=== PATIENT | female | born 1955 | race Caucasian/White ===

== ENCOUNTER 2017-01-16 05:11 | Day surgery (SDC) | payer BC ==
[2017-01-09 10:26] VITALS: BMI 27.4
[2017-01-16] MEDS ORDERED: MIDAZOLAM HCL 2 MG/2 ML SINGLE DOSE VIAL ONE ×2 (09:21)
[2017-01-16] MEDS ORDERED: PROPOFOL 20 ML ONE ×2 (09:21)
[2017-01-16] MEDS ORDERED: ACETAMINOPHEN 325 MG TABLET (FP) PO PRN ×2 (09:31→10:10)
[2017-01-16] MEDS ORDERED: LEVOFLOXACIN 500 MG PREMIX BAG IVPB ONE (09:45)
[2017-01-16] MEDS ORDERED: oxyCODONE HCL 5 MG TABLET PO PRN (10:10)
[2017-01-16] MEDS ORDERED: NITROFURANTOIN MACROCRYSTAL 50 MG CAPSULE (FP) PO ONE (10:15)
[2017-01-16] MEDS ORDERED: ONDANSETRON 4 MG/2 ML VIAL IVPUSH PRN (10:39)
[2017-01-16] MEDS ORDERED: LACTATED RINGERS SOLUTION 1,000 ML IV SCH (10:45)
--- NOTE | 2017-01-16 10:50 | HP ---
DATE OF ADMISSION: HISTORY: The patient is a 61-year-old female with a history of persistent microscopic hematuria. A cystoscopy done several months ago was within normal limits. The patient also complains of left lower quadrant pain with no radiation, continuous and deep on palpation. She denies any voiding symptoms including incontinence, dysuria, or frequency. PAST MEDICAL HISTORY: She has had her right ovary removed, and she does have a history of hyperlipidemia. SOCIAL HISTORY: She has more than 20 years of 1-day/pack smoking. She works as a junior high school principal. She denies any chemical exposures. ALLERGIES: She is allergic to NSAIDS, PENICILLIN, ERYTHROMYCIN, and CLINDAMYCIN. MEDICATIONS: Presently, she takes a statin and Paxil for some depression. Repeat regimens of antibiotics were unsuccessful. DIAGNOSTIC DATA: The patient continues to have 4+ blood in her urine. She underwent an abdominal and pelvic CAT scan, which was within normal limits. Her PT 11 and INR 0.97. Her random glucose was 110, BUN 19, creatinine 1. Liver enzymes were all within normal limits. Her white cell count is 8000. Hemoglobin 14.9, hematocrit 45.2. Her direct platelets were 204,000, indices were normal. Urine microscopy also revealed RBCs greater than 3 per high-power field. HCG is negative. The patient also had a chest x-ray, which was read as negative. Her findings on the CT revealed sigmoid diverticulosis with a focal area of wall thickening. There was some pericolonic fat stranding. There was also some thickening of the mesocolon. No free intraperitoneal air was seen. The kidneys, ureters, and bladder were within normal limits. No stones were found. No evidence of obstructive uropathy was seen. The bladder was slightly thickened. There was a 3-cm x 1-cm exophytic, hyperdense lesion in the left upper pole of the kidney, which is unchanged in size from a CAT scan from 2008. This most likely has proteinaceous content. A renal ultrasound revealed a cystic lesion in that same area. PHYSICAL EXAMINATION: Chest: Clear. Abdomen: Soft. No CVA tenderness is elicited. Pelvic: Reveals a grade 1 cystorectocele with atrophic vaginitis. Urethra is within normal limits. Extremities: Show full range of motion with no clubbing, cyanosis, or edema. IMPRESSION: At present, 1. Persistent, microscopic hematuria. 2. Left renal cyst. 3. Normal cystoscopy. A urine cytology revealed suspicious cells but not conclusive for transitional cell carcinoma. PLAN: For cystoscopy, bilateral ureteroscopies, bilateral pelvic washings. Roxy [id number]
[2017-01-16 10:58] VITALS: TEMP 98
--- NOTE | 2017-01-16 12:07 | OP ---
DATE OF OPERATION: 01/16/2017 PREOPERATIVE DIAGNOSIS: Persistent, microscopic hematuria, bilateral flank pain. OPERATIVE PROCEDURE: Cystourethroscopy, bilateral retrograde pyelogram, bilateral ureteroscopies, bilateral collection of exfoliated cytology, and placement of bilateral double-J stents. ANESTHESIA: General. DESCRIPTION OF PROCEDURE: Under above-stated anesthesia, the patient was prepped and draped in the usual sterile manner. She was placed in the dorsal lithotomy position. Inspection of the internal introitus revealed a grade 1 cystourethrocele. There was some evidence of atrophic vaginitis and a tight meatus. Therefore, the meatus was calibrated to 22-Libyan and dilated to 30-Libyan with straight Shohola sounds without difficulty or bleeding. A cystoscope was introduced and urine was collected for culture and sensitivity. Inspection of the bladder revealed a grade 1-2 trabeculation. No overt lesions or calculi were seen. Ureteral orifices were located in their normal position with efflux of clear urine bilaterally. Dome and lateral jimenez were also clear of lesions. A Flexi-Tip catheter was placed into the right ureteral orifice, and approximately 7 mL of contrast was injected. X-rays revealed no filling defect in the right renal pelvis. The ureter was within normal limits. Drainage films revealed good drainage. The same thing was done on the contralateral side then this was also within normal limits. Therefore, a Glidewire was passed up the right renal unit. The cystoscope was removed. Ureteroscope was performed in the usual fashion. The entire ureter appeared to be normal with no lesions seen. The right renal pelvis also appeared to be normal. There were areas that were hyperemic but no overt lesions or calculi were seen. Therefore, 10 mL of normal saline was injected and then aspirated for exfoliative cytology. The ureteroscope was then withdrawn, and exactly the same thing was done on the left side. Afterwards, bilateral double-J 22-cm 6-Libyan JJ stents were placed in the right and left renal units. X-rays confirmed good position of the stents. The bladder was emptied. The scope was removed. The patient tolerated the procedure well. She returned to the recovery room in good condition. Roxy [id number]
[2017-01-16] MEDS ORDERED: ONDANSETRON 4 MG/2 ML VIAL ONE (12:49)
[2017-01-16 16:23] VITALS: BP 141/81; PULSE 66
--- NOTE | 2017-01-19 13:20 | PATH ---
Cytology Non-Gynecological Report Patient Name: ROSHAN CRUZ [facility]. Rec. #: [id number] /Age/Gender: 1955 (Age: 61) / F Account: [id number] Location: [facility] Taken: 01/16/2017 Received: 01/16/2017 Reported: 01/19/2017 Physicians: Dinah Archuleta M.D. Specimen(s) Received RIGHT RENAL PELVIC WASHING Clinical History None given Final Diagnosis RIGHT RENAL PELVIS, WASHING: SATISFACTORY FOR EVALUATION. ATYPICAL AND DEGENERATING UROTHELIAL CELLS PRESENT, FAVOR REACTIVE. NO HIGH GRADE UROTHELIAL CARCINOMA IDENTIFIED. RED BLOOD CELLS ARE PRESENT. Comment: The cytologic preparations show numerous clusters of urothelial cells, with papillary formations noted. Some of the urothelial cells show nuclear enlargement and small nucleoli. The cytologic findings may be the result of inflammation or instrumentation; but the possibility of a low grade urothelial neoplasm cannot be completely excluded. Recommend correlation with clinical findings and followup as clinically indicated. Electronically Signed Alberto Islas M.D. Gross Description Approximately 2 cc of bloody fluid received fresh. Two cytofunnels prepared.
--- NOTE | 2017-01-19 13:21 | PATH ---
Cytology Non-Gynecological Report Patient Name: ROSHAN CRUZ [facility]. Rec. #: [id number] /Age/Gender: 1955 (Age: 61) / F Account: [id number] Location: [facility] Taken: 01/16/2017 Received: 01/16/2017 Reported: 01/19/2017 Physicians: Dinah Archuleta M.D. Specimen(s) Received LEFT RENAL PELVIC WASHINGS Clinical History None given Final Diagnosis LEFT RENAL PELVIS, WASHING: SATISFACTORY FOR EVALUATION. BENIGN (NO MALIGNANT CELLS IDENTIFIED). BENIGN AND REACTIVE UROTHELIAL CELLS AND RED BLOOD CELLS PRESENT. Electronically Signed Alberto Islas M.D. Gross Description Approximately 10 cc of bloody fluid received fresh. Two cytofunnels prepared.
--- NOTE | 2017-01-19 13:21 | PATH ---
Cytology Non-Gynecological Report Patient Name: ROSHAN CRUZ [facility]. Rec. #: [id number] /Age/Gender: 1955 (Age: 61) / F Account: [id number] Location: [facility] Taken: 01/16/2017 Received: 01/16/2017 Reported: 01/19/2017 Physicians: Dinah Archuleta M.D. Specimen(s) Received URINE Clinical History None given Final Diagnosis URINE FOR CYTOLOGY: SATISFACTORY FOR EVALUATION. ATYPICAL CLUSTERS OF UROTHELIAL CELLS PRESENT. NO HIGH GRADE UROTHELIAL CARCINOMA IDENTIFIED. RED BLOOD CELLS AND DEBRIS PRESENT. Comment: Clusters of urothelial cells are atypical finding in a voided urine, and may be the result of infection, inflammation, or instrumentation. However, the possibility of a low-grade urothelial neoplasm cannot be excluded. Recommend correlation with clinical findings and followup as clinically indicated. Electronically Signed Alberto Islas M.D. Gross Description Approximately 15 cc of yellow fluid received fresh. Two cytofunnels and one cellblock prepared.
== END 2017-01-16 15:30 | disposition home or self-care (01) ==
LOC: JASU-SURG 05:11
PROVIDERS: ATTEND Urology
PROC: BT14YZZ Fluoroscopy of Kidneys, Ureters and Bladder using Other Contrast (ICD-10-PCS; 2017-01-16)
PROC: 0TJ98ZZ Inspection of Ureter, Via Natural or Artificial Opening Endoscopic (ICD-10-PCS; principal; 2017-01-16 09:00)
PROC: 0T9880Z Drainage of Bilateral Ureters with Drainage Device, Via Natural or Artificial Opening Endoscopic (ICD-10-PCS; 2017-01-16 09:00)
DX: R31.29 Other microscopic hematuria (principal); R10.9 Unspecified abdominal pain
CPT/HCPCS: 76000-TC; 88108; 88305-TC

== ENCOUNTER 2018-06-01 22:56 | Emergency (ER) | payer BC ==
[2018-06-01 23:03] VITALS: BP 148/80; PULSE 70; TEMP 97.6; BMI 28.1
[2018-06-01] MEDS ORDERED: ONDANSETRON 4 MG/2 ML VIAL IVPB ONE (23:33)
[2018-06-01] MEDS ORDERED: SODIUM CHLORIDE 1,000 ML IV STA (23:34)
--- NOTE | 2018-06-01 23:37 | PDOC ---
History of Present Illness - General Chief Complaint: Nausea/Vomiting Stated Complaint: VOMITING HEADACHE Time Seen by Provider: 06/01/18 23:19 - History of Present Illness Initial Comments: 06/01/18 23:30 62 yo F with h/o Divertucolosis, anxiety who p/w vomiting, diarrhea, diffuse abdominal pain. Patient reports acute onset of multiple episodes of NBNB emesis this evening following bowel/colonoscopy regimen of Miralax mixed with Gatorade. Now with mild crampy abdominal pain diffusely, no triggers or alleviators. Multiple episodes of loose, wtaery stools x 2 days. diffuse tension /pressure headache beginning this evening, with absent photo/phonophobia, neck stiffness, or pain. Patient was advised to ingest 64 oz of Miralax by end of the day. Has been taking Dulcolax daily x 2 days. States that she routinely gets Q5 year colonoscopies although with no sig pathology in past. Scheduled fro maintenance colonoscopy 06-02-[address] Jonatan Medina GI. Patient not on medication x 2 days. Patient states that she is not going to complete colonoscopy regimen. Has been NPO x 1 day. Patient denies MORRISSEY, vision change, palpitations, cough, wheezing, orthopena, PND , leg swelling/pain, F,C, CP, SOB, urinary complaints, hematuria, BPR, constipation, lightheadedness, weakness, sensory changes. PMHx: as noted above Surgical: Denies abdominal surgery ROS: as noted SHx: Denies Etoh, IVDA Allergies: PCN, Azithromycin Past History - Past Medical History Allergies/Adverse Reactions: Allergies Allergy/AdvReac Type Severity Reaction Status Date / Time aspirin Allergy Hives Verified 06/01/18 23:03 NSAIDS (Non-Steroidal Allergy Hives Verified 06/01/18 23:03 Anti-Inflamma Penicillins Allergy Hives Verified 06/01/18 23:03 Sulfa (Sulfonamide Allergy Hives Verified 06/01/18 23:03 Antibiotics) Home Medications: Ambulatory Orders Fluticasone Prop 0.05% Nasal [Flonase -] 1 spray NS DAILY 01/09/17 Lovastatin 40 mg PO HS 01/09/17 Olopatadine HCl [Pataday] 2.5 ml OP DAILY 01/09/17 Paroxetine HCl [Paxil -] 10 mg PO DAILY 01/09/17 Levofloxacin [Levaquin] 750 mg PO DAILY #4 tablet MDD 4 tab 06/02/18 Anemia: No Asthma: No Cancer: No Cardiac Disorders: No CVA: No COPD: No CHF: No Dementia: No Diabetes: No GI Disorders: Yes (DIVERTICULOSIS) Disorders: No HTN: No Hypercholesterolemia: Yes Liver Disease: No Psychiatric Problems: Yes (depression) Seizures: No Thyroid Disease: No - Surgical History Abdominal Surgery: Yes (FIBROID REMOVED) Appendectomy: No Cardiac Surgery: No Cholecystectomy: No Lung Surgery: No Neurologic Surgery: No Orthopedic Surgery: No - Immunization History Immunization Up to Date: Yes - Suicide/Smoking/Psychosocial Hx Smoking Status: Yes Smoking History: Current every day smoker Have you smoked in the past 12 months: No Number of Cigarettes Smoked Daily: 3 Information on smoking cessation initiated: Yes Hx Alcohol Use: No Drug/Substance Use Hx: No Substance Use Type: None Hx Substance Use Treatment: No Review of Systems - Review of Systems Comments:: 06/01/18 23:45 GENERAL/CONSTITUTIONAL: No fever or chills. No weakness. HEAD, EYES, EARS, NOSE AND THROAT: No change in vision. No ear pain or discharge. No sore throat. CARDIOVASCULAR: No chest pain or shortness of breath RESPIRATORY: No cough, wheezing, or hemoptysis. GASTROINTESTINAL: + Abdominal pain, nausea, vomiting, diarrhea. No constipation. GENITOURINARY: No dysuria, frequency, or change in urination. MUSCULOSKELETAL: No joint or muscle swelling or pain. No neck or back pain. SKIN: No rash NEUROLOGIC: No headache, vertigo, loss of consciousness, or change in strength/ sensation. ENDOCRINE: No increased thirst. No abnormal weight change HEMATOLOGIC/LYMPHATIC: No anemia, easy bleeding, or history of blood clots. ALLERGIC/IMMUNOLOGIC: No hives or skin allergy. *Physical Exam - Vital Signs Last Vital Signs Temp Pulse Resp BP Pulse Ox 97.6 F 70 18 148/80 94 L 06/01/18 23:01 06/01/18 23:01 06/01/18 23:01 06/01/18 23:01 06/01/18 23:01 - Physical Exam Comments: 06/01/18 23:45 GENERAL: Awake, alert, and fully oriented, in no acute distress HEAD: No signs of trauma, normocephalic, atraumatic EYES: PERRLA, EOMI, sclera anicteric, conjunctiva clear ENT: Dry mucous membranes. Auricles normal inspection, hearing grossly normal, nares patent, oropharynx clear without exudates. NECK: Normal ROM, supple, no lymphadenopathy, JVD, or masses LUNGS: No distress, speaks full sentences, clear to auscultation bilaterally HEART: Regular rate and rhythm, normal S1 and S2, no murmurs, rubs or gallops, peripheral pulses normal and equal bilaterally. ABDOMEN: Soft, nontender, normoactive bowel sounds. No guarding, no rebound. No masses EXTREMITIES : Normal inspection, Normal range of motion, no edema. No clubbing or cyanosis. NEUROLOGICAL: Cranial nerves II through XII grossly intact. Normal speech, normal gait, no focal sensorimotor deficits SKIN: Warm, Dry, normal turgor, no rashes or lesions noted ED Treatment Course - LABORATORY CBC & Chemistry Diagram: 06/02/18 00:01 06/02/18 00:01 Medical Decision Making - Medical Decision Making 06/01/18 23:45 62 yo F with h/o Divertucolosis, anxiety who p/w vomiting, diarrhea, diffuse abdominal pain this evening following bowel/colonoscopy regimen of Miralax mixed with Gatorade. Now with mild crampy abdominal pain diffusely. Vitals wnl, AF, A&Ox3. Physical exam unremarkable. Presentation likely 2/2 bowel prep ingestion, and GI upset. Absent abdominal ttp on physical. Low suspicion of intrabdominal pathology. Pt. with clinical s/s dehydration. Will provide IVF resuscitation, and reassess. ED Course: Dragan, NS, D5LR 06/02/18 01:05 CBC,CMP: Unremarkable Stable for d/c with return precautions. Advised to f/u GI 06/02/18 02:04 Levaquin 750 mg for UTI Levaquin sent to pharmacy Laboratory Tests 06/02/18 00:45 Urine Color Yellow Urine Appearance Clear Urine Blood 3+ H Urine Nitrite Negative Ur Leukocyte Esterase 2+ H Urine WBC (Auto) 29 Urine RBC (Auto) 44 *DC/Admit/Observation/Transfer Diagnosis at time of Disposition: Abdominal pain with vomiting - Discharge Dispostion Condition at time of disposition: Stable Decision to Admit order: No - Prescriptions Prescriptions: Levofloxacin [Levaquin] 750 mg PO DAILY #4 tablet MDD 4 tab - Referrals Referrals: Wayne Nevarez MD [Primary Care Provider] - - Patient Instructions Printed Discharge Instructions: DI for Vomiting -- Adult Additional Instructions: Please return to the emergency department with any new or worsening symptoms or concerns. Please follow up with your primary care physician within 72 hours. - Post Discharge Activity
[2018-06-01] MEDS ORDERED: DEXTROSE 5%-LACTATED RINGERS 1,000 ML IV SCH (23:45)
--- NOTE | 2018-06-01 23:58 | PDOC ---
Documentation entered by Arnel Petty SCRIBE, acting as scribe for Cammie Hansen MD. Attending Attestation - Resident Resident Name: Сергей Saenz - ED Attending Attestation I have performed the following: I have examined & evaluated the patient, The case was reviewed & discussed with the resident, I agree w/resident's findings & plan, Exceptions are as noted - HPI HPI: 06/01/18 23:55 The patient is a 62 year old female with a significant past medical history of diverticulosis and anxiety who presents to the emergency department with vomiting and diarrhea for 2 days. The patient reports some associated diffuse abdominal pain . she states that she had an onset of non bloody, non bilious emesis this evening after colonoscopy regimen of Miralax with gatorade. The patient denies any reliever or worsening factors to her abdominal pain. She states that she was taking her her dulcolax 2 times a day but has not been taking the medication for he past 2 days. It is noted that the patient is scheduled for a colonoscopy tomorrow with Adam Frias (GI). The patient also reports a non associated headache. She denies any other symptoms or complaints. - Physicial Exam PE: GENERAL: Awake, alert, and fully oriented, in no acute distress HEAD: No signs of trauma EYES: PERRLA, EOMI, sclera anicteric, conjunctiva clear ENT: Auricles normal inspection, hearing grossly normal, nares patent, oropharynx clear without exudates. Dry mucosa NECK: Normal ROM, supple, no lymphadenopathy, JVD, or masses LUNGS: Breath sounds equal, clear to auscultation bilaterally. No wheezes, and no crackles HEART: Regular rate and rhythm, normal S1 and S2, no murmurs, rubs or gallops ABDOMEN: Soft, +mild epigastric tenderness, normoactive bowel sounds. No guarding, no rebound. No masses EXTREMITIES: Normal range of motion, no edema. No clubbing or cyanosis. No cords, erythema, or tenderness NEUROLOGICAL: Cranial nerves II through XII grossly intact. Normal speech, normal gait. Motor and sensation intact SKIN: Warm, Dry, normal turgor, no rashes or lesions noted. - Medical Decision Making 06/01/18 23:48 Pt appears dehydrated. No signs of acute abdomen. Will give IV hydration, 2 liters, as well as zofran, then reassess. Cammie Hansen MD: This documentation has been prepared by the Jovanny [employer] Collisia, SCRIBE, under my direction and personally reviewed by me in its entirety. I confirm that the documentation accurately reflects all work, treatment, procedures, and medical decision making performed by me.
[2018-06-02] MEDS ORDERED: ONDANSETRON 4 MG/2 ML VIAL ONE (00:31)
[2018-06-02 00:38] LABS: EOS % 0.5 % (0-4.5); HEMOGLOBIN 14.6 GM/dL (10.7-15.3); MCH 31.4 pg (25.7-33.7); MCHC 33.9 g/dl (32.0-36.0); MEAN CELL VOLUME 92.7 fl (80-96); MEAN PLT VOLUME 9.1 fl (7.5-11.1); MONO % 3.5 % (3.8-10.2); PLATELET COUNT 193 K/MM3 (134-434); RBC 4.64 M/mm3 (3.60-5.2); RDW 13.6 % (11.6-15.6); WHITE BLOOD COUNT 9.7 K/mm3 (4.0-10.0)
[2018-06-02 01:03] LABS: ALBUMIN 3.6 g/dl (3.4-5.0); ALK PHOS 90 U/L (45-117); ANION GAP 6 MMOL/L (8-16); BILIRUBIN,TOTAL 0.5 mg/dL (0.2-1); BLOOD UREA NITROGEN 13 mg/dL (7-18); CHLORIDE 106 mmol/L (98-107); CO2 28 mmol/L (21-32); CREATININE 0.8 mg/dL (0.55-1.3); GLUCOSE,RANDOM 121 mg/dL (74-106); LIPASE 96 U/L (73-393); POTASSIUM 3.9 mmol/L (3.5-5.1); SGOT/AST 16 U/L (15-37); SGPT/ALT 18 U/L (13-61); SODIUM 141 mmol/L (136-145)
[2018-06-02 01:22] LABS: EPI CELLS 1.8 /HPF (0-5/HPF); URINE APPEARANCE CLEAR; URINE BACTERIA 7.8 /hpf (NEGATIVE); URINE BILIRUBIN NEGATIVE (NEGATIVE); URINE CASTS 6 /lpf (0-8); URINE COLOR YELLOW; URINE GLUCOSE (UA) NEGATIVE (NEGATIVE); URINE KETONE NEGATIVE (NEGATIVE); URINE LEUK ESTERASE 2+ (NEGATIVE); URINE NITRITE NEGATIVE (NEGATIVE); URINE PROTEIN NEGATIVE (NEGATIVE); URINE RBC 44 /hpf (0-4); URINE UROBILINOGEN 0.2 mg/dL (0.2-1.0); URINE WBC 29 /hpf (0-5)
[2018-06-02] MEDS ORDERED: levoFLOXacin 750 MG TABLET PO ONE (02:00)
[2018-06-02] MEDS ORDERED: ACETAMINOPHEN 1000 MG/100 ML VIAL (NON FORMULARY) IVPB ONE (02:43)
[2018-06-02] MEDS ORDERED: ACETAMINOPHEN 325 MG TABLET (FP) ONE (03:06)
[2018-06-02] MEDS ORDERED: ACETAMINOPHEN 325 MG TABLET (FP) PO ONE (03:06)
--- NOTE | 2018-06-02 12:26 | EKG ---
Test Reason : Blood Pressure : / mmHG Vent. Rate : 064 BPM Atrial Rate : 064 BPM P-R Int : 154 ms QRS Dur : 146 ms QT Int : 452 ms P-R-T Axes : 068 -58 031 degrees QTc Int : 466 ms NORMAL SINUS RHYTHM POSSIBLE LEFT ATRIAL ENLARGEMENT RIGHT BUNDLE BRANCH BLOCK LEFT ANTERIOR FASCICULAR BLOCK BIFASCICULAR BLOCK ABNORMAL ECG WHEN COMPARED WITH ECG OF 09-JAN-2017 10:40, (RBBB AND LEFT ANTERIOR FASCICULAR BLOCK) IS NOW PRESENT Confirmed by MIKAYLA LAND, NGUYEN ([id number]) on 06/02/2018 12:26:43 PM Referred By: Confirmed By:NGUYEN DEGROOT MD
== END 2018-06-02 03:25 | disposition home or self-care (01) ==
LOC: JER 22:56
PROC: 3E0337Z Introduction of Electrolytic and Water Balance Substance into Peripheral Vein, Percutaneous Approach (ICD-10-PCS; principal; 2018-06-01)
PROC: 3E033GC Introduction of Other Therapeutic Substance into Peripheral Vein, Percutaneous Approach (ICD-10-PCS; 2018-06-01)
DX: N39.0 Urinary tract infection, site not specified (principal); F41.9 Anxiety disorder, unspecified; Z87.19 Personal history of other diseases of the digestive system
CPT/HCPCS: 36415; 80053; 81003; 83690; 85025; 93005; 93010; 99282-25; J7030

== ENCOUNTER 2019-01-28 10:21 | Emergency (ER) | payer BC, OTHER ==
[2019-01-28] MEDS ORDERED: SODIUM CHLORIDE 0.9% 500 ML INFUS.BAG IV ONE (11:36)
[2019-01-28] MEDS ORDERED: MECLIZINE HCL 25 MG TABLET (FP) PO ONE (11:36)
[2019-01-28] MEDS ORDERED: ONDANSETRON 4 MG/2 ML VIAL IVPUSH ONE (11:37)
--- NOTE | 2019-01-28 11:37 | PDOC ---
History of Present Illness - General Chief Complaint: Lightheaded Stated Complaint: NAUSEA/DIZZINESS Time Seen by Provider: 01/28/19 10:52 History Source: Patient Exam Limitations: No Limitations - History of Present Illness Initial Comments: 01/28/19 11:37 63yF w PMHx vertigo, HLD, asthma, chronic sinusitus, anxiety presenting w dizziness. Yesterday morning had sudden onset dizziness (self spinning), cold sweats, nausea, blurry vision lasting 10s when dentist laid pt down supine. Pt had another episode of dizziness and associated symptoms this morning. No changes in meds. Was diagnosed w vertigo 20yrs ago, relieved w blue medication. Currently has sinusitis. Picks ears w q-tips. Denies head trauma, alcohol/ smoking/illicit drugs. Denies fever, headache, vomiting, chest pain, SOB. Past History - Past Medical History Allergies/Adverse Reactions: Allergies Allergy/AdvReac Type Severity Reaction Status Date / Time aspirin Allergy Hives Verified 01/28/19 11:18 NSAIDS (Non-Steroidal Allergy Hives Verified 01/28/19 11:18 Anti-Inflamma Penicillins Allergy Hives Verified 01/28/19 11:18 Sulfa (Sulfonamide Allergy Hives Verified 01/28/19 11:18 Antibiotics) Home Medications: Ambulatory Orders Fluticasone Prop 0.05% Nasal [Flonase -] 1 spray NS DAILY 01/09/17 Lovastatin 40 mg PO HS 01/09/17 Olopatadine HCl [Pataday] 1 drop OU BID 01/09/17 Venlafaxine HCl ER [Effexor Xr -] 1 tab PO DAILY 11/09/18 Meclizine HCl 25 mg PO DAILY PRN #15 tablet 01/28/19 Anemia: No Asthma: No Cancer: No Cardiac Disorders: No CVA: No COPD: No CHF: No Dementia: No Diabetes: No GI Disorders: Yes (DIVERTICULOSIS) Disorders: No HTN: No Hypercholesterolemia: Yes Liver Disease: No Psychiatric Problems: Yes (depression) Seizures: No Thyroid Disease: No - Surgical History Abdominal Surgery: Yes (FIBROID REMOVED) Appendectomy: No Cardiac Surgery: No Cholecystectomy: No Lung Surgery: No Neurologic Surgery: No Orthopedic Surgery: No - Immunization History Immunization Up to Date: Yes - Psycho Social/Smoking Cessation Hx Smoking Status: Yes Smoking History: Former smoker Have you smoked in the past 12 months: No Number of Cigarettes Smoked Daily: 15 Information on smoking cessation initiated: No Hx Alcohol Use: No Drug/Substance Use Hx: No Substance Use Type: None Hx Substance Use Treatment: No Review of Systems - Review of Systems Able to Perform ROS?: Yes Constitutional: No: Chills, Fever HEENTM: Yes: Blurred Vision, Nose Congestion. No: Hearing Loss Respiratory: No: Cough, Shortness of Breath Cardiac (ROS): No: Chest Pain, Palpitations, Syncope ABD/GI: Yes: Nausea. No: Abdominal Distended, Constipated, Diarrhea, Vomiting : No: Burning, Dysuria, Frequency, Flank Pain Musculoskeletal: No: Back Pain, Muscle Pain Integumentary: No: Bruising, Dryness, Erythema Neurological: No: Headache, Paresthesia, Seizure, Tingling, Tremors Psychiatric: Yes: Anxiety. No: Depression, Stressors Endocrine: No: Excessive Sweating, Flushing, Intolerance to Cold, Intolerance to Heat Hematologic/Lymphatic: No: Anemia, Blood Clots *Physical Exam - Vital Signs Last Vital Signs Temp Pulse Resp BP Pulse Ox 97.4 F L 86 16 132/96 100 01/28/19 10:55 01/28/19 10:55 01/28/19 10:55 01/28/19 10:55 01/28/19 10:55 - Physical Exam General Appearance: Yes: Nourished, Appropriately Dressed. No: Apparent Distress HEENT: positive: EOMI, SANTINO, Normal Voice, Nasal Congestion, Hearing Grossly Normal, Other (no nystagmus, R ear some cerumen). negative: Scleral Icterus (R) , Scleral Icterus (L), TM Bulging, TM Dull, TM Erythema Respiratory/Chest: positive: Lungs Clear, Normal Breath Sounds. negative: Chest Tender, Respiratory Distress, Crackles, Rales, Rhonchi, Stridor, Wheezing Cardiovascular: positive: Regular Rhythm, Regular Rate, S1, S2. negative: Edema , Murmur Extremity: positive: Normal Capillary Refill Integumentary: positive: Normal Color Neurologic: positive: wreath inspector II-XII NML intact, Fully Oriented, Alert, Normal Mood/ Affect, Normal Response, Motor Strength 5/5, Responsive, Finger to Nose (normal) , Other (normal alternating hands, heel-laboy, standing balance, gait. Negative Cheryl maneuver). negative: Numbness, Sensory Deficit, Confused, Disoriented ED Treatment Course - LABORATORY CBC & Chemistry Diagram: 01/28/19 11:48 01/28/19 11:48 - RADIOLOGY Radiology Studies Ordered: Category Date Time Status HEAD CT WITHOUT CONTRAST [CT] Stat CT Scan 01/28/19 11:36 Ordered Medical Decision Making - Medical Decision Making 01/28/19 11:38 CBC CMP trop EKG w RBBB, HR 66, QTc 473, no ST changes Head CT shows no acute pathology, mild volume loss, mild chronic sinusitis 1L NS, meclizine, zofran WBC 10.2 --- 63yF w PMHx vertigo, HLD, asthma, anxiety presenting w dizziness, nausea w supine position d/t central vs peripheral vertigo. Head CT did not show acute bleed/infarct/mass. MRI brain did not show infarct/aneurysm/stenosis. Neuro intact. Low concern for ACS (neg trop, NSR EKG) vs CVA (no focal deficits, neg CT//MRI). Given 1L NS, meclizine, zofran. DC w neuro f/u Discharge - Discharge Information Problems reviewed: Yes Clinical Impression/Diagnosis: Vertigo Condition: Improved Disposition: HOME - Admission No - Additional Discharge Information Prescriptions: Meclizine HCl 25 mg PO DAILY PRN #15 tablet PRN Reason: Vertigo - Follow up/Referral Referrals: Wayne Nevarez MD [Primary Care Provider] - Justin Steve MD [Staff Physician] - - Patient Discharge Instructions Patient Printed Discharge Instructions: DI for Vertigo Additional Instructions: You were seen for dizziness. Your labs and imaging did not show anything concerning. You were given medication for your dizziness. Please follow up with your primary care doctor and the referred neurologist Dr Steve regarding your symptoms You can take the prescribed meclizine as directed if you continue to have dizziness. Drink lots of water Come back to the ED if you lose consciousness, start vomiting, or have fevers. - Post Discharge Activity
[2019-01-28] MEDS ORDERED: MECLIZINE HCL 25 MG TABLET (FP) ONE (11:39)
[2019-01-28 11:44] VITALS: BMI 29.0
[2019-01-28 12:22] LABS: BASO % 0.4 % (0-2.0); EOS % 0.5 % (0-4.5); HEMATOCRIT 46.2 % (32.4-45.2); HEMOGLOBIN 15.5 GM/dL (10.7-15.3); LYMPH % 12.5 % (8-40); MCHC 33.5 g/dl (32.0-36.0); MEAN CELL VOLUME 92.5 fl (80-96); MEAN PLT VOLUME 9.1 fl (7.5-11.1); MONO % 4.2 % (3.8-10.2); NEUT % 82.4 % (42.8-82.8); PLATELET COUNT 202 K/MM3 (134-434); RBC 4.99 M/mm3 (3.60-5.2); RDW 13.3 % (11.6-15.6); WHITE BLOOD COUNT 10.2 K/mm3 (4.0-10.0)
[2019-01-28 12:25] LABS: ALBUMIN 3.8 g/dl (3.4-5.0); BILIRUBIN,TOTAL 0.4 mg/dL (0.2-1); BLOOD UREA NITROGEN 13.5 mg/dL (7-18); CALCIUM 9.5 mg/dL (8.5-10.1); CREATININE 0.9 mg/dL (0.55-1.3); POTASSIUM 4.7 mmol/L (3.5-5.1); TOT PROT 7.5 g/dl (6.4-8.2)
--- NOTE | 2019-01-28 15:24 | PDOC ---
Documentation entered by Jacek Brown SCRIBE, acting as scribe for James Yu MD. James Yu MD: This documentation has been prepared by the Stephanie heart Xhesika, SCRIBE, under my direction and personally reviewed by me in its entirety. I confirm that the documentation accurately reflects all work, treatment, procedures, and medical decision making performed by me. Attending Attestation - Resident Resident Name: Bob Downs - ED Attending Attestation I have performed the following: I have examined & evaluated the patient, The case was reviewed & discussed with the resident, I agree w/resident's findings & plan, Exceptions are as noted - HPI HPI: 01/28/19 11:42 Hypertension asthma chronic sinusitis anxiety vertigo presents with positional vertigo started yesterday brief worsened when she went to adjust his appointment again dissociated with position today had more consistent vertigo very positional more constant at baseline and presented to the emergency department 01/28/19 15:25 - Physicial Exam PE: 01/28/19 15:25 Vitals: Triage Vital signs reviewed General Appearance: No acute distress, well nourished well developed, Head: Atraumatic, Eyes: Pupils equal reactive round, extraocular movement intact Cardiac: Regular rate and rhythym, no murmurs, no rubs, no gallops, Lungs: Clear to auscultation bilateral, good air movement bilaterally, Abdomen: Soft, non distended, normal bowel sounds, non tender to palpation Extremities: Full range of motion to all extremities, no cyanosis, clubbing, or edema patient feels slightly unsteady ambulation Skin: Warm and dry, no rashes or lesions, no rash, no petechiae Neuro: AOX3; cranial Nerves 2-12 grossly intact, strength intact to all extremities, sensation intact to all extremities, gait normal Psych: Normal mood, normal affect - Medical Decision Making 01/28/19 15:25 History examination consistent with positional vertigo status post meclizine and IV fluids patient does feel better She states she still has a small amount of persistent constant feeling of unsteadiness or room spinning given her age and risk factors a stat rapid sequence DWI and MRI was ordered which demonstrates no evidence of stroke Given these results her history and examination is most consistent with peripheral vertigo will discharge on meclizine she will follow-up with neurology for any persistence of symptoms Findings, need for follow-up and strict return instructions to the patient. Heart Score/ECG Review - ECG Impressions Comment:: 01/28/19 17:36 EKG performed at 1037 demonstrates normal sinus rhythm right bundle branch block no ST elevations or T wave inversions Interpreted by me.
[2019-01-28 15:31] VITALS: BP 130/79; PULSE 76; TEMP 98
--- NOTE | 2019-01-29 10:22 | EKG ---
Test Reason : Blood Pressure : / mmHG Vent. Rate : 066 BPM Atrial Rate : 066 BPM P-R Int : 158 ms QRS Dur : 154 ms QT Int : 452 ms P-R-T Axes : 060 074 023 degrees QTc Int : 473 ms NORMAL SINUS RHYTHM RIGHT BUNDLE BRANCH BLOCK ABNORMAL ECG WHEN COMPARED WITH ECG OF 02-JUN-2018 00:21, LEFT ANTERIOR FASCICULAR BLOCK IS NO LONGER PRESENT Confirmed by AURELIO LAND, AYLEEN ([id number]) on 01/29/2019 10:21:59 AM Referred By: Confirmed By:AYLEEN CAREY MD
== END 2019-01-28 15:40 | disposition home or self-care (01) ==
LOC: JER 10:21
PROC: 3E033GC Introduction of Other Therapeutic Substance into Peripheral Vein, Percutaneous Approach (ICD-10-PCS; principal; 2019-01-28)
PROC: 3E0337Z Introduction of Electrolytic and Water Balance Substance into Peripheral Vein, Percutaneous Approach (ICD-10-PCS; 2019-01-28)
DX: R42 Dizziness and giddiness (principal); Z88.0 Allergy status to penicillin; Z88.8 Allergy status to other drugs, medicaments and biological substances; E78.5 Hyperlipidemia, unspecified; J45.909 Unspecified asthma, uncomplicated; F41.9 Anxiety disorder, unspecified
CPT/HCPCS: 36415; 70450-TC; 70544-TC; 70551-TC; 80053; 82550; 84484; 85025; 93005; 93010; 99283-25

== ENCOUNTER 2019-10-17 04:38 | Day surgery (SDC) | payer BC ==
[2019-10-13 13:38] VITALS: BMI 29.3
[2019-10-17 08:54] LABS: INR 0.98 (0.83-1.09); PROTHROMBIN TIME (PATIENT) 11.6 SEC (9.7-13.0)
[2019-10-17 08:57] LABS: ACTIVATED PTT 32.7 SECONDS (25.2-36.5)
--- NOTE | 2019-10-17 10:53 | HP ---
History & Physical Update - History History: No Change (Endometrial hyperplasia) - Physical Physical: No Change - Assessment Assessment: No Change - Plan Plan: No Change (Hysteroscopy, D&C)
[2019-10-17] MEDS ORDERED: MIDAZOLAM HCL 2 MG/2 ML SINGLE DOSE VIAL ONE (10:55)
[2019-10-17] MEDS ORDERED: ceFAZolin SODIUM 1 GM VIAL IVPB ONE (11:20)
[2019-10-17] MEDS ORDERED: ceFAZolin SODIUM 1 GM VIAL ONE (11:30)
[2019-10-17] MEDS ORDERED: LIDOCAINE HCL 2% JELLY (5 ML/TUBE) ONE (11:30)
[2019-10-17] MEDS ORDERED: DEXAMETHASONE SOD PHOSPHATE 4 MG/1 ML VIAL ONE (11:30)
[2019-10-17] MEDS ORDERED: LIDOCAINE HCL/PF 2% SDV 5ML VIAL ONE (11:30)
--- NOTE | 2019-10-17 11:52 | OP ---
Operative Note - Note: Operative Date: 10/17/19 Pre-Operative Diagnosis: Endometrial hyperplasia Operation: D&C, hysteroscopy Findings: Normal uterine cavity with atrophic endometrium Post-Operative Diagnosis: Same as Pre-op Surgeon: Sherman Ibarra Anesthesiologist/PATTERN KEEPER: Alfredo Vargas Anesthesia: General Specimens Removed: Endometrial curettings Estimated Blood Loss (mls): 2 Blood Volume Replaced (mls): 0 Fluid Volume Replaced (mls): 400 Operative Report Dictated: Yes
[2019-10-17] MEDS ORDERED: oxyCODONE HCL 5 MG TABLET PO PRN ×2 (11:58)
[2019-10-17] MEDS ORDERED: ONDANSETRON 4 MG/2 ML VIAL IVPUSH PRN (11:58)
[2019-10-17] MEDS ORDERED: LACTATED RINGERS SOLUTION 1,000 ML IV SCH (12:00)
--- NOTE | 2019-10-17 13:12 | OP ---
DATE OF OPERATION: 10/17/2019 PREOPERATIVE DIAGNOSIS: Endometrial hyperplasia. POSTOPERATIVE DIAGNOSIS: Endometrial hyperplasia. PROCEDURE: Dilatation and curettage and hysteroscopy. SURGEON: Sherman Ibarra MD ANESTHESIOLOGIST: Alfredo Vargas MD ANESTHESIA: General. COMPLICATIONS: None. ESTIMATED BLOOD LOSS: 2 mL. INTRAVENOUS FLUIDS: 400 mL. PATHOLOGY: Endometrial curettings. FINDINGS: Examination under anesthesia revealed a small anteverted uterus with no pelvic or adnexal masses. Hysteroscopy revealed a normal uterine cavity with atrophic endometrium. No masses or lesions were noted within the uterine cavity. DESCRIPTION OF PROCEDURE: The patient was met preoperatively. Risks, benefits, and alternatives of surgery were discussed in details. All questions were answered. The consent form was reviewed and discussed. The patient verbalized her understanding. The consent form was signed, and the patient requested to proceed with the surgery. She was brought to the OR with the IV running. The patient was then placed in the supine position on the surgical table. The general anesthesia was achieved without difficulty. The patient was placed in a dorsal lithotomy position using adjustable Nilesh stirrups. She was examined under anesthesia with the findings as described above. The patient was prepped and draped in the usual sterile fashion. A timeout was conducted as per standard protocol. The surgeon then proceeded with the operation. A weighted speculum was introduced inside the vagina with good visualization of the cervix. The cervix was grasped with a single-tooth tenaculum. The cervical os did not need to be dilated. A diagnostic hysteroscope was placed inside the uterine cavity. The uterine cavity appeared to be normal. The endometrial lining appeared to be atrophic. The hysteroscope was removed. A sharp endometrial curettage was performed. The tissue was submitted to Pathology. Good hemostasis was noted. All of the instruments were removed from the patient. The patient was returned to supine position, and she was transferred to recovery room in stable condition and awake. Roxy [id number]
[2019-10-17] MEDS ORDERED: ACETAMINOPHEN 325 MG TABLET (FP) ONE (13:40)
[2019-10-17 14:59] VITALS: BP 132/80; PULSE 75; TEMP 97.7
--- NOTE | 2019-10-18 15:47 | PATH ---
Surgical Pathology Report Patient Name: ROSHAN CRUZ [facility]. Rec. #: [id number] /Age/Gender: 1955 (Age: 64) / F Account: [id number] Location: [facility] SURGICAL Taken: 10/17/2019 Received: 10/17/2019 Reported: 10/18/2019 Physicians: Sherman Ibarra M.D. Specimen(s) Received ENDOMETRIAL CURETTINGS Clinical History Polyp of cervix uteri Final Diagnosis ENDOMETRIAL CURETTINGS, DILATION AND CURETTAGE: STRIPS OF ENDOMETRIAL GLANDS AND STROMA CONSISTENT WITH ATROPHIC ENDOMETRIUM AND BENIGN ENDOCERVICAL TISSUE ADMIXED WITH MUCUS. Electronically Signed Reta Rodriguez M.D. Gross Description Received in formalin labeled "endometrial curettings," is a 1.2 x 0.9 x 0.3 cm aggregate of mejia red soft tissue fragments. The formalin is filtered and the specimen is entirely submitted in one cassette. /10/17/2019 saudi10/17/2019
== END 2019-10-17 14:59 | disposition home or self-care (01) ==
LOC: JASU-SURG 04:38
PROVIDERS: ATTEND Obstetrics & Gynecology
PROC: 0UDB7ZX Extraction of Endometrium, Via Natural or Artificial Opening, Diagnostic (ICD-10-PCS; principal; 2019-10-17 10:30)
PROC: 0UJD8ZZ Inspection of Uterus and Cervix, Via Natural or Artificial Opening Endoscopic (ICD-10-PCS; 2019-10-17 10:30)
DX: N85.00 Endometrial hyperplasia, unspecified (principal)
CPT/HCPCS: 36415; 85610; 85730; 86850; 86900; 86901; 88305-TC; 94760

== ENCOUNTER 2020-06-13 05:37 | Emergency (ER) | payer BC ==
[2020-06-13 05:53] VITALS: BP 178/98; PULSE 85; TEMP 98.4; BMI 28.8
[2020-06-13] MEDS ORDERED: SODIUM CHLORIDE 0.9% 500 ML INFUS.BAG IV ONE (07:42)
[2020-06-13 08:48] LABS: BASO % 0.8 % (0-2.0); EOS % 0.3 % (0-4.5); HEMOGLOBIN 15.9 GM/dL (10.7-15.3); LYMPH % 15.5 % (8-40); MCH 30.8 pg (25.7-33.7); MCHC 33.9 g/dl (32.0-36.0); MEAN CELL VOLUME 90.9 fl (80-96); MEAN PLT VOLUME 8.6 fl (7.5-11.1); NEUT % 77.4 % (42.8-82.8); PLATELET COUNT 231 K/MM3 (134-434); RBC 5.17 M/mm3 (3.60-5.2); RDW 13.5 % (11.6-15.6); WHITE BLOOD COUNT 13.4 K/mm3 (4.0-10.0)
[2020-06-13 09:16] LABS: ALBUMIN 4.1 g/dl (3.4-5.0); CALCIUM 9.8 mg/dL (8.5-10.1)
[2020-06-13 09:21] LABS: BILIRUBIN,TOTAL 0.6 mg/dL (0.2-1)
== END 2020-06-13 11:32 | disposition home or self-care (01) ==
LOC: JER 05:37
PROC: 3E033NZ Introduction of Analgesics, Hypnotics, Sedatives into Peripheral Vein, Percutaneous Approach (ICD-10-PCS; principal; 2020-06-13)
DX: L29.9 Pruritus, unspecified (principal)
CPT/HCPCS: 36415; 80053; 85025; 99284-25

== ENCOUNTER 2020-09-23 15:07 | Emergency (ER) | payer BC ==
[2020-09-23 15:11] VITALS: BP 161/93; PULSE 71; TEMP 97; BMI 25.9
== END 2020-09-23 15:57 | disposition home or self-care (01) ==
LOC: JER 15:07
DX: M26.609 Unspecified temporomandibular joint disorder, unspecified side (principal)
CPT/HCPCS: 99283-25

== ENCOUNTER 2021-02-25 18:27 | Emergency (ER) | payer BC ==
[2021-02-25 18:40] VITALS: BP 160/97; PULSE 90; TEMP 98.2; BMI 27.3
[2021-02-25] MEDS ORDERED: FAMOTIDINE 20 MG TABLET PO ONE (20:01)
[2021-02-25] MEDS ORDERED: FAMOTIDINE 20 MG TABLET ONE (20:46)
== END 2021-02-25 23:45 | disposition home or self-care (01) ==
LOC: JERFT 18:27
PROC: 3E033NZ Introduction of Analgesics, Hypnotics, Sedatives into Peripheral Vein, Percutaneous Approach (ICD-10-PCS; principal; 2021-02-25)
DX: R21 Rash and other nonspecific skin eruption (principal); M25.562 Pain in left knee; M25.571 Pain in right ankle and joints of right foot; M25.531 Pain in right wrist
CPT/HCPCS: 36415; 73110-TC-RT-FY; 73130-TC-RT-FY; 73562-TC-LT-FY; 73610-TC-RT-FY; 73630-TC-RT-FY; 86038; 99284-25

== ENCOUNTER 2021-09-06 08:08 | Emergency (ER) | payer OTHER, BC ==
[2021-09-06 08:31] VITALS: BP 145/90; PULSE 74; TEMP 97.8; BMI 27.4
== END 2021-09-06 09:48 | disposition home or self-care (01) ==
LOC: JERFT 08:08
DX: M79.645 Pain in left finger(s) (principal); M79.644 Pain in right finger(s); R22.31 Localized swelling, mass and lump, right upper limb; R22.32 Localized swelling, mass and lump, left upper limb
CPT/HCPCS: 73130-TC-LT-FY; 73130-TC-RT-FY; 99284-25

== ENCOUNTER 2022-01-22 07:37 | Emergency (ER) | payer OTHER ==
[2022-01-22 08:02] VITALS: BMI 27.4
[2022-01-22] MEDS ORDERED: ACETAMINOPHEN 500 MG TABLET (FP) PO ONE (08:03)
[2022-01-22 09:34] VITALS: BP 123/68; PULSE 88; RESP 18; TEMP 99
== END 2022-01-22 11:36 | disposition home or self-care (01) ==
LOC: JER 07:37
DX: U07.1 COVID-19 (principal)
CPT/HCPCS: 0241U-QW; 99283-25

== ENCOUNTER 2022-01-29 20:15 | Emergency (ER) | payer OTHER ==
[2022-01-29 20:37] VITALS: BP 141/76; PULSE 68; RESP 18; TEMP 98.5; BMI 27.4
[2022-01-29] MEDS ORDERED: SODIUM CHLORIDE 0.9% 500 ML INFUS.BAG IV ONE (21:14)
[2022-01-29] MEDS ORDERED: PANTOPRAZOLE SODIUM 40 MG VIAL IVPUSH ONE (21:14)
[2022-01-29] MEDS ORDERED: ACETAMINOPHEN 1000 MG/100 ML BAG IVPB ONE (21:38)
[2022-01-29 21:45] LABS: BASO % 1.2 % (0-2.0); EOS % 1.5 % (0-4.5); HEMOGLOBIN 14.3 GM/dL (10.7-15.3); LYMPH % 35.4 % (8-40); MCH 30.6 pg (25.7-33.7); MCHC 33.2 g/dl (32.0-36.0); MEAN CELL VOLUME 92.2 fl (80-96); MEAN PLT VOLUME 8.9 fl (7.5-11.1); MONO % 5.4 % (3.8-10.2); NEUT % 56.5 % (42.8-82.8); PLATELET COUNT 173 10^3/uL (134-434); RBC 4.66 M/mm3 (3.60-5.2); RDW 13.1 % (11.6-15.6)
[2022-01-29 22:04] LABS: CHLORIDE 108 mmol/L (98-107); SODIUM 132 mmol/L (136-145)
[2022-01-29 22:07] LABS: ALBUMIN 3.2 g/dl (3.4-5.0); BLOOD UREA NITROGEN 12.9 mg/dL (7-18); CALCIUM 8.6 mg/dL (8.5-10.1); CO2 26 mmol/L (21-32); GLUCOSE,RANDOM 120 mg/dL (74-106)
[2022-01-29 22:10] LABS: CREATININE 0.8 mg/dL (0.55-1.3)
[2022-01-29 22:13] LABS: ALK PHOS 65 U/L (45-117)
[2022-01-29 22:31] LABS: ANION GAP -1 MMOL/L (8-16); SGOT/AST 143 U/L (15-37); SGPT/ALT 40 U/L (13-61)
[2022-01-29] MEDS ORDERED: ACETAMINOPHEN INJECTION 100 ML IVPB ONE (22:35)
[2022-01-29] MEDS ORDERED: PANTOPRAZOLE SODIUM 40 MG VIAL ONE (22:35)
[2022-01-29 23:56] LABS: CALCIUM 8.5 mg/dL (8.5-10.1)
[2022-01-29 23:57] LABS: BLOOD UREA NITROGEN 12.3 mg/dL (7-18)
[2022-01-30] LABS: BILIRUBIN,TOTAL < 0.2 mg/dL (0.2-1)
[2022-01-30] LABS: CREATININE 0.8 mg/dL (0.55-1.3)
[2022-01-30] MEDS ORDERED: POTASSIUM CHLORIDE ORAL LIQUID 20 MEQ/15 ML PO ONE (00:09)
== END 2022-01-30 02:05 | disposition home or self-care (01) ==
LOC: JER 20:15
PROC: 3E0333Z Introduction of Anti-inflammatory into Peripheral Vein, Percutaneous Approach (ICD-10-PCS; principal; 2022-01-29)
PROC: 3E033GC Introduction of Other Therapeutic Substance into Peripheral Vein, Percutaneous Approach (ICD-10-PCS; 2022-01-29)
DX: U07.1 COVID-19 (principal); R19.7 Diarrhea, unspecified
CPT/HCPCS: 36415; 80048; 80053; 85025; 99284-25

== ENCOUNTER 2022-02-19 18:52 | Emergency (ER) | payer OTHER ==
[2022-02-19 19:00] VITALS: BP 123/76; PULSE 73; RESP 18; TEMP 97.9; BMI 26.9
[2022-02-19] MEDS ORDERED: FAMOTIDINE 20 MG TABLET PO ONE (20:24)
[2022-02-19] MEDS ORDERED: SODIUM CHLORIDE 0.9% 500 ML INFUS.BAG IV ONE (20:29)
[2022-02-19] MEDS ORDERED: FAMOTIDINE 20 MG TABLET ONE (20:42)
[2022-02-19 21:53] LABS: BASO % 0.5 % (0-2.0); EOS % 1.7 % (0-4.5); HEMATOCRIT 42.2 % (32.4-45.2); HEMOGLOBIN 13.8 GM/dL (10.7-15.3); LYMPH % 33.1 % (8-40); MCH 30.4 pg (25.7-33.7); MCHC 32.7 g/dl (32.0-36.0); MEAN CELL VOLUME 92.9 fl (80-96); MEAN PLT VOLUME 8.6 fl (7.5-11.1); MONO % 5.8 % (3.8-10.2); NEUT % 58.9 % (42.8-82.8); PLATELET COUNT 188 10^3/uL (134-434); RBC 4.54 M/mm3 (3.60-5.2); RDW 13.3 % (11.6-15.6); WHITE BLOOD COUNT 6.9 K/mm3 (4.0-10.0)
[2022-02-19] MEDS ORDERED: MAG HYDROX/AL HYDROX/SIMETH 30 ML UNIT-DOSE CUP PO ONE (22:05)
[2022-02-19 22:20] LABS: ALBUMIN 3.5 g/dl (3.4-5.0); BLOOD UREA NITROGEN 10.7 mg/dL (7-18); CALCIUM 9.3 mg/dL (8.5-10.1)
[2022-02-19 22:21] LABS: MAGNESIUM 2.3 mg/dL (1.8-2.4)
[2022-02-19 22:23] LABS: CREATININE 0.8 mg/dL (0.55-1.3)
[2022-02-19 22:24] LABS: PHOSPHOROUS 3.9 mg/dL (2.5-4.9)
[2022-02-19] MEDS ORDERED: MAG HYDROX/AL HYDROX/SIMETH 30 ML UNIT-DOSE CUP ONE (22:24)
[2022-02-19 22:25] LABS: BILIRUBIN,TOTAL 0.4 mg/dL (0.2-1); TOT PROT 6.8 g/dl (6.4-8.2)
== END 2022-02-20 01:18 | disposition home or self-care (01) ==
LOC: JER 18:52 → JERFT 18:52 → JER 02-20 01:18
DX: K44.9 Diaphragmatic hernia without obstruction or gangrene (principal); R91.1 Solitary pulmonary nodule
CPT/HCPCS: 36415; 74176-TC; 80053; 83690; 83735; 84100; 84484; 85025; 93005; 93010; 99285-25

== ENCOUNTER 2023-02-14 11:09 | Emergency (ER) | payer OTHER, BC ==
[2023-02-14 11:13] VITALS: BP 138/74; PULSE 71; RESP 18; TEMP 98; BMI 25.9
[2023-02-14] MEDS ORDERED: ACETAMINOPHEN 500 MG TABLET (FP) PO ONE (12:22)
[2023-02-14] MEDS ORDERED: ACETAMINOPHEN 500 MG TABLET (FP) ONE (12:53)
== END 2023-02-14 15:14 | disposition home or self-care (01) ==
LOC: JERFT 11:09 → JER 11:09 → JERFT 15:14
DX: M79.674 Pain in right toe(s) (principal); M79.675 Pain in left toe(s); R22.43 Localized swelling, mass and lump, lower limb, bilateral
CPT/HCPCS: 73630-TC-LT; 73630-TC-RT-FY; 99284-25

== ENCOUNTER 2023-04-06 09:13 | Emergency (ER) | payer OTHER, BC ==
[2023-04-06 09:19] VITALS: BP 132/75; PULSE 71; RESP 16; TEMP 98.4; BMI 24.9
[2023-04-06 10:55] LABS: THROAT:GRP A STREP NOT DETECTED (NOTDETECTED)
== END 2023-04-06 11:19 | disposition home or self-care (01) ==
LOC: JERFT 09:13
DX: J02.9 Acute pharyngitis, unspecified (principal); R09.82 Postnasal drip; Z20.822 Contact with and (suspected) exposure to COVID-19
CPT/HCPCS: 0241U-QW; 87070; 87651; 99283-25

== ENCOUNTER 2023-04-15 23:28 | Emergency (ER) | payer OTHER, BC ==
[2023-04-15 23:32] VITALS: BP 121/77; PULSE 75; RESP 20; TEMP 97.7; BMI 24.7
[2023-04-16] MEDS ORDERED: PANTOPRAZOLE SODIUM 40 MG/100 ML BAG IVPB ONE (01:11)
[2023-04-16] MEDS ORDERED: MAG HYDROX/AL HYDROX/SIMETH 30 ML UNIT-DOSE CUP ONE (01:11)
[2023-04-16] MEDS: MAG HYDROX/AL HYDROX/SIMETH 30 ML UNIT-DOSE CUP PO ONE (01:15)
[2023-04-16 01:19] LABS: BASO % 0.3 % (0-2.0); EOS % 0.7 % (0-4.5); HEMATOCRIT 43.9 % (32.4-45.2); HEMOGLOBIN 15.1 GM/dL (10.7-15.3); LYMPH % 10.3 % (8-40); MCH 31.7 pg (25.7-33.7); MCHC 34.4 g/dl (32.0-36.0); MEAN CELL VOLUME 92.3 fl (80-96); MEAN PLT VOLUME 8.7 fl (7.5-11.1); MONO % 3.5 % (3.8-10.2); NEUT % 85.2 % (42.8-82.8); PLATELET COUNT 197 10^3/uL (134-434); RBC 4.76 M/mm3 (3.60-5.2); RDW 13.7 % (11.6-15.6)
[2023-04-16] MEDS: PANTOPRAZOLE SODIUM 40 MG VIAL IVPUSH ONE (01:22)
[2023-04-16 01:30] LABS: INR 1.03 (0.83-1.09); PROTHROMBIN TIME (PATIENT) 11.9 SEC (9.7-13.0)
[2023-04-16 01:38] LABS: POTASSIUM 4.2 mmol/L (3.5-5.1)
[2023-04-16 01:40] LABS: CALCIUM 8.9 mg/dL (8.5-10.1)
[2023-04-16 01:41] LABS: ALBUMIN 3.5 g/dl (3.4-5.0); BLOOD UREA NITROGEN 22.9 mg/dL (7-18)
[2023-04-16 01:44] LABS: CREATININE 1.2 mg/dL (0.55-1.3)
[2023-04-16 01:45] LABS: TOT PROT 7.2 g/dl (6.4-8.2)
[2023-04-16 01:46] LABS: BILIRUBIN,TOTAL 0.3 mg/dL (0.2-1)
[2023-04-16 01:48] LABS: N-TERMINAL BNP 43.5 pg/ml (5-125)
== END 2023-04-16 02:13 | disposition left against medical advice (07) ==
LOC: JER 23:28
DX: R10.13 Epigastric pain (principal); R11.2 Nausea with vomiting, unspecified; K21.9 Gastro-esophageal reflux disease without esophagitis
CPT/HCPCS: 36415; 80053; 83880; 84484; 85025; 85610; 93005; 93010; 99284-25

== ENCOUNTER 2023-05-22 06:45 | Emergency (ER) | payer OTHER, BC ==
[2023-05-22 06:53] VITALS: RESP 18; BMI 24.2
[2023-05-22] MEDS ORDERED: LIDOCAINE 4% PATCH TP ONE (07:53)
[2023-05-22] MEDS ORDERED: ACETAMINOPHEN 500 MG TABLET (FP) ONE (08:03)
[2023-05-22] MEDS: LIDOCAINE 4% PATCH TP ONE (08:10)
[2023-05-22] MEDS: ACETAMINOPHEN 500 MG TABLET (FP) PO ONE (08:10)
[2023-05-22] MEDS: LIDOCAINE 5% TOPICAL PATCH TP ONE (08:10)
[2023-05-22 08:46] LABS: EPI CELLS 8 /uL (0-25.1); HYALINE CASTS 0 /uL (0-3.1); URINE APPEARANCE Error; URINE BACTERIA 77 /uL (0-1359); URINE BILIRUBIN NEGATIVE (NEGATIVE); URINE COLOR YELLOW; URINE GLUCOSE (UA) NEGATIVE (NEGATIVE); URINE KETONE NEGATIVE (NEGATIVE); URINE LEUK ESTERASE 2+ (NEGATIVE); URINE NITRITE NEGATIVE (NEGATIVE); URINE PROTEIN NEGATIVE (NEGATIVE); URINE RBC 90 /uL (0-23.9); URINE UROBILINOGEN 0.2 mg/dL (0.2-1.0); URINE WBC 36 /uL (0-25.8)
[2023-05-22 09:30] LABS: BASO % 0.8 % (0-2.0); EOS % 1.9 % (0-4.5); HEMATOCRIT 45.1 % (32.4-45.2); LYMPH % 27.1 % (8-40); MCH 30.9 pg (25.7-33.7); MCHC 33.3 g/dl (32.0-36.0); MEAN CELL VOLUME 92.6 fl (80-96); MONO % 4.3 % (3.8-10.2); NEUT % 65.9 % (42.8-82.8); PLATELET COUNT 238 10^3/uL (134-434); RBC 4.87 M/mm3 (3.60-5.2); RDW 13.2 % (11.6-15.6); WHITE BLOOD COUNT 9.1 K/mm3 (4.0-10.0)
[2023-05-22 09:49] LABS: POTASSIUM 4.3 mmol/L (3.5-5.1)
[2023-05-22 09:50] LABS: CALCIUM 9.4 mg/dL (8.5-10.1)
[2023-05-22 09:51] LABS: ALBUMIN 3.7 g/dl (3.4-5.0); BLOOD UREA NITROGEN 13.9 mg/dL (7-18)
[2023-05-22 09:54] LABS: CREATININE 0.9 mg/dL (0.55-1.3)
[2023-05-22 09:55] LABS: TOT PROT 7.3 g/dl (6.4-8.2)
[2023-05-22 09:56] LABS: BILIRUBIN,TOTAL 0.5 mg/dL (0.2-1)
[2023-05-22 11:30] VITALS: BP 148/82; PULSE 73; TEMP 98.3
[2023-05-22] MEDS ORDERED: LIDOCAINE PATCH REMOVAL MC ONE (22:00)
== END 2023-05-22 12:00 | disposition home or self-care (01) ==
LOC: JER 06:45
DX: M54.50 Low back pain, unspecified (principal); M62.830 Muscle spasm of back; N39.0 Urinary tract infection, site not specified
CPT/HCPCS: 36415; 73502-TC-RT-FY; 74176-TC; 80053; 81003; 85025; 87086; 99284-25

== ENCOUNTER 2023-05-24 05:04 | Emergency (ER) | payer OTHER, BC ==
[2023-05-24 05:15] VITALS: BMI 24.2
[2023-05-24] MEDS ORDERED: ACETAMINOPHEN 325 MG TABLET (FP) ONE (05:55)
[2023-05-24] MEDS ORDERED: LIDOCAINE 4% PATCH TP ONE ×2 (05:56→06:39)
[2023-05-24] MEDS ORDERED: CYCLOBENZAPRINE HCL 5 MG TABLET ONE ×2 (05:56→05:57)
[2023-05-24] MEDS: ACETAMINOPHEN 325 MG TABLET (FP) PO ONE (06:03)
[2023-05-24] MEDS: CYCLOBENZAPRINE HCL 5 MG TABLET PO ONE (06:03)
[2023-05-24] MEDS: LIDOCAINE 5% TOPICAL PATCH TP ONE (06:03)
[2023-05-24] MEDS: LIDOCAINE 4% PATCH TP ONE (06:45)
[2023-05-24 07:50] LABS: PH,URINE 5.5 (5.0-8.0); URINE APPEARANCE CLEAR; URINE BILIRUBIN NEGATIVE (NEGATIVE); URINE COLOR YELLOW; URINE GLUCOSE (UA) NEGATIVE (NEGATIVE); URINE KETONE NEGATIVE (NEGATIVE); URINE LEUK ESTERASE TRACE (NEGATIVE); URINE NITRITE NEGATIVE (NEGATIVE); URINE PROTEIN NEGATIVE (NEGATIVE); URINE UROBILINOGEN 0.2 mg/dL (0.2-1.0)
[2023-05-24 07:59] LABS: EPI CELLS 3.3 /uL (0-25.1); URINE BACTERIA 3.8 /uL (0-1359); URINE RBC 56.9 /uL (0-23.9)
[2023-05-24 08:59] VITALS: BP 150/79; PULSE 76; RESP 16
[2023-05-24] MEDS ORDERED: LIDOCAINE PATCH REMOVAL MC ONE ×2 (18:00→19:00)
== END 2023-05-24 08:55 | disposition home or self-care (01) ==
LOC: JER 05:04
DX: M54.50 Low back pain, unspecified (principal); M25.551 Pain in right hip; R20.0 Anesthesia of skin
CPT/HCPCS: 81003; 99283-25

== ENCOUNTER 2023-06-04 09:25 | Observation (INO) | payer OTHER, BC ==
[2023-06-04] MEDS ORDERED: ACETAMINOPHEN 325 MG TABLET (FP) ONE (11:23)
[2023-06-04] MEDS ORDERED: LIDOCAINE 4% PATCH TP ONE (11:24)
[2023-06-04 11:28] LABS: EPI CELLS 3 /uL (0-25.1); HYALINE CASTS 0 /uL (0-3.1); PH,URINE 5.5 (5.0-8.0); URINE APPEARANCE CLEAR; URINE BACTERIA 7 /uL (0-1359); URINE BILIRUBIN NEGATIVE (NEGATIVE); URINE COLOR YELLOW; URINE GLUCOSE (UA) NEGATIVE (NEGATIVE); URINE KETONE NEGATIVE (NEGATIVE); URINE LEUK ESTERASE 1+ (NEGATIVE); URINE NITRITE NEGATIVE (NEGATIVE); URINE PROTEIN NEGATIVE (NEGATIVE); URINE RBC 68 /uL (0-23.9); URINE UROBILINOGEN 0.2 mg/dL (0.2-1.0); URINE WBC 21 /uL (0-25.8)
[2023-06-04] MEDS: ACETAMINOPHEN 500 MG TABLET (FP) PO ONE (11:44)
[2023-06-04] MEDS ORDERED: CYCLOBENZAPRINE HCL 5 MG TABLET ONE (12:09)
[2023-06-04] MEDS: CYCLOBENZAPRINE HCL 10 MG TABLET (FP) PO ONE (12:12)
[2023-06-04] MEDS: LIDOCAINE 4% PATCH TP ONE (12:13)
[2023-06-04] MEDS: LIDOCAINE 5% TOPICAL PATCH TP ONE (12:14)
[2023-06-04 12:16] VITALS: BMI 23.3
[2023-06-04] MEDS: diazePAM 5 MG TABLET PO ONE ×2 (15:20→21:33)
[2023-06-04] MEDS ORDERED: diazePAM 5 MG TABLET ONE (15:30)
[2023-06-04] MEDS ORDERED: MECLIZINE HCL 25 MG TABLET (FP) PO PRN (17:35)
[2023-06-04] MEDS ORDERED: ACETAMINOPHEN 325 MG TABLET (FP) PO PRN (17:36)
[2023-06-04] MEDS ORDERED: oxyCODONE HCL 5 MG TABLET PO PRN (17:36)
[2023-06-04] MEDS: SUCRALFATE 1 GM/10 ML UNIT DOSE CUPS PO SCH (19:01)
[2023-06-04 19:03] VITALS: RESP 18
[2023-06-04] MEDS: ATORVASTATIN CA 10 MG TABLET (FP) PO SCH (21:34)
[2023-06-04] MEDS: HEPARIN NA (PORCINE) 5,000 UNITS/ML 1ML VIAL SQ SCH (21:34)
[2023-06-04 21:41] LABS: BASO % 0.5 % (0-2.0); HEMATOCRIT 41.9 % (32.4-45.2); HEMOGLOBIN 14.2 GM/dL (10.7-15.3); LYMPH % 29.1 % (8-40); MCHC 33.8 g/dl (32.0-36.0); MEAN CELL VOLUME 91.7 fl (80-96); MONO % 7.9 % (3.8-10.2); NEUT % 60.5 % (42.8-82.8); PLATELET COUNT 217 10^3/uL (134-434); RBC 4.57 M/mm3 (3.60-5.2); RDW 13.7 % (11.6-15.6); WHITE BLOOD COUNT 9.8 K/mm3 (4.0-10.0)
[2023-06-04] MEDS: LIDOCAINE PATCH REMOVAL MC SCH (21:48)
[2023-06-04 21:58] LABS: CHLORIDE 106 mmol/L (98-107); POTASSIUM 4.1 mmol/L (3.5-5.1); SODIUM 140 mmol/L (136-145)
[2023-06-04] MEDS ORDERED: PATIENT'S OWN MEDICATION (NON-FORMULARY) (Olopatadine Hcl [Pataday] 2.5 ML Drops) OU SCH (22:00)
[2023-06-04] MEDS ORDERED: FAMOTIDINE 20 MG TABLET PO SCH (22:00)
[2023-06-04 22:01] LABS: ANION GAP 3 mmol/L (4-13); CALCIUM 8.8 mg/dL (8.5-10.1); CO2 32 mmol/L (21-32); GLUCOSE,RANDOM 113 mg/dL (74-106)
[2023-06-04 22:02] LABS: ALBUMIN 3.1 g/dl (3.4-5.0); BLOOD UREA NITROGEN 26.8 mg/dL (7-18)
[2023-06-04 22:04] LABS: SGOT/AST 11 U/L (15-37)
[2023-06-04 22:05] LABS: SGPT/ALT 14 U/L (13-61)
[2023-06-04 22:06] LABS: ALK PHOS 67 U/L (45-117); BILIRUBIN,TOTAL 0.8 mg/dL (0.2-1); TOT PROT 6.3 g/dl (6.4-8.2)
[2023-06-05] MEDS: FLUTICASONE PROP 0.05% 16 GM NASAL SPRAY NS SCH (11:15)
[2023-06-05] MEDS: VENLAFAXINE HCL 37.5 MG E.R. CAPSULE PO SCH (11:16)
[2023-06-05] MEDS: POLYETHYLENE GLYCOL (HEALTHYLAX) 3350 17 GM PACKET PO SCH (12:40)
[2023-06-05] MEDS: diazePAM 5 MG TABLET PO PRN (19:56)
[2023-06-06 10:31] VITALS: BP 138/80; PULSE 70; TEMP 97.6
== END 2023-06-06 15:18 | disposition home or self-care (01) ==
LOC: JER 09:25 → JERBED 17:00 → J7W 18:40
PROVIDERS: ADMIT Internal Medicine; ATTEND Internal Medicine
DX: M54.16 Radiculopathy, lumbar region (principal); M25.551 Pain in right hip; E78.5 Hyperlipidemia, unspecified; N28.1 Cyst of kidney, acquired; K57.90 Diverticulosis of intestine, part unspecified, without perforation or abscess without bleeding; K21.9 Gastro-esophageal reflux disease without esophagitis; R26.2 Difficulty in walking, not elsewhere classified; M79.10 Myalgia, unspecified site; Z88.8 Allergy status to other drugs, medicaments and biological substances
CPT/HCPCS: 36415; 72148-TC; 80053; 81003; 85025; 85651; 86140; 86200; 86431; 87086; 93005; 93010; 99285-25; G0378; J1644

== ENCOUNTER 2023-06-29 15:41 | Emergency (ER) | payer OTHER, BC ==
[2023-06-29 15:58] VITALS: BP 124/70; PULSE 74; RESP 18; TEMP 98.6; BMI 22.4
[2023-06-29] MEDS ORDERED: diazePAM 5 MG TABLET ONE (18:31)
[2023-06-29] MEDS: diazePAM 5 MG TABLET PO ONE (18:32)
[2023-06-29 19:11] LABS: EPI CELLS 5 /uL (0-25.1); HYALINE CASTS 0 /uL (0-3.1); PH,URINE 5.5 (5.0-8.0); URINE APPEARANCE CLEAR; URINE BACTERIA 4 /uL (0-1359); URINE BILIRUBIN NEGATIVE (NEGATIVE); URINE COLOR YELLOW; URINE GLUCOSE (UA) NEGATIVE (NEGATIVE); URINE KETONE NEGATIVE (NEGATIVE); URINE LEUK ESTERASE 1+ (NEGATIVE); URINE NITRITE NEGATIVE (NEGATIVE); URINE PROTEIN NEGATIVE (NEGATIVE); URINE RBC 43 /uL (0-23.9); URINE UROBILINOGEN 0.2 mg/dL (0.2-1.0); URINE WBC 21 /uL (0-25.8)
== END 2023-06-29 19:46 | disposition home or self-care (01) ==
LOC: JER 15:41
DX: M25.551 Pain in right hip (principal); M79.18 Myalgia, other site; R20.0 Anesthesia of skin; G89.29 Other chronic pain; M54.9 Dorsalgia, unspecified; R31.29 Other microscopic hematuria; M54.16 Radiculopathy, lumbar region
CPT/HCPCS: 81003; 87086; 99283-25

== ENCOUNTER 2023-07-03 04:23 | Day surgery (SDC) | payer OTHER, BC ==
[2023-07-03] MEDS ORDERED: TRIAMCINOLONE ACET 40MG/1ML VIAL ONE (07:28)
[2023-07-03] MEDS ORDERED: BUPIVACAINE HCL/PF 0.5% (5MG/ML) 10 ML VIAL ONE (07:28)
[2023-07-03] MEDS ORDERED: LIDOCAINE HCL/PF 1% SDV 5ML VIAL ONE (07:29)
[2023-07-03 09:09] VITALS: RESP 18
[2023-07-03] MEDS: LIDOCAINE HCL 1% PRESERVATIVE FREE - 30ML VIAL IJ ONE (11:14)
[2023-07-03] MEDS: IOHEXOL 180 MG/1 ML ML IJ ONE (11:15)
[2023-07-03] MEDS: BUPIVACAINE HCL/PF 0.5% (5MG/ML) 10 ML VIAL IJ ONE (11:16)
[2023-07-03] MEDS: TRIAMCINOLONE ACET 40MG/1ML VIAL IM ONE (11:16)
[2023-07-03 12:56] VITALS: BP 140/75; PULSE 60; TEMP 97.7
[2023-07-03] MEDS ORDERED: ACETAMINOPHEN 500 MG TABLET (FP) PO PRN (13:21)
== END 2023-07-03 11:53 | disposition home or self-care (01) ==
LOC: JASU-SURG 04:23
PROVIDERS: ATTEND Pain Medicine Pain Medicine
PROC: 3E0U3BZ Introduction of Anesthetic Agent into Joints, Percutaneous Approach (ICD-10-PCS; 2023-07-03)
PROC: 3E0U33Z Introduction of Anti-inflammatory into Joints, Percutaneous Approach (ICD-10-PCS; principal; 2023-07-03 11:00)
DX: M53.3 Sacrococcygeal disorders, not elsewhere classified (principal)
CPT/HCPCS: 76000-TC-FY

== ENCOUNTER 2023-07-11 09:50 | Emergency (ER) | payer OTHER, BC ==
[2023-07-11 09:58] VITALS: BP 135/63; PULSE 74; RESP 18; TEMP 98.2; BMI 21.4
== END 2023-07-11 10:40 | disposition home or self-care (01) ==
LOC: JERFT 09:50
DX: S39.011A Strain of muscle, fascia and tendon of abdomen, initial encounter (principal); R10.31 Right lower quadrant pain; R19.03 Right lower quadrant abdominal swelling, mass and lump; X58.XXXA Exposure to other specified factors, initial encounter
CPT/HCPCS: 99283-25

== ENCOUNTER 2023-07-24 09:39 | Emergency (ER) | payer OTHER, BC ==
[2023-07-24 09:46] VITALS: BP 150/86; PULSE 95; RESP 16; TEMP 98.6; BMI 20.5
[2023-07-24] MEDS ORDERED: diphenhydrAMINE HCL 25 MG CAPSULE (FP) PO ONE (11:04)
[2023-07-24] MEDS ORDERED: DEXAMETHASONE 4 MG TABLET (FP) ONE (11:04)
[2023-07-24] MEDS: diphenhydrAMINE HCL 25 MG CAPSULE (FP) PO ONE (11:09)
[2023-07-24] MEDS: DEXAMETHASONE 4 MG TABLET (FP) PO ONE (11:09)
== END 2023-07-24 12:25 | disposition home or self-care (01) ==
LOC: JERFT 09:39
DX: R21 Rash and other nonspecific skin eruption (principal)
CPT/HCPCS: 99283-25

== ENCOUNTER 2023-08-09 18:47 | Inpatient (IN) | payer OTHER, BC ==
[2023-08-09 18:51] VITALS: BMI 20.5
[2023-08-09] MEDS ORDERED: METHOCARBAMOL 500 MG TABLET ONE (21:20)
[2023-08-09] MEDS ORDERED: LIDOCAINE 4% PATCH TP ONE (21:21)
[2023-08-09] MEDS ORDERED: CYCLOBENZAPRINE HCL 5 MG TABLET ONE (21:30)
[2023-08-09] MEDS: LIDOCAINE 4% PATCH TP ONE (21:42)
[2023-08-09] MEDS: CYCLOBENZAPRINE HCL 5 MG TABLET PO ONE (21:42)
[2023-08-09] MEDS: METHOCARBAMOL 500 MG TABLET PO ONE (21:42)
[2023-08-09] MEDS: LIDOCAINE PATCH REMOVAL MC SCH (21:43)
[2023-08-09] MEDS: diphenhydrAMINE HCL 50 MG CAPSULE PO ONE (22:22)
[2023-08-09] MEDS ORDERED: diphenhydrAMINE HCL 25 MG CAPSULE (FP) PO ONE (22:33)
[2023-08-09 22:37] LABS: BASO % 0.5 % (0-2.0); EOS % 0.9 % (0-4.5); HEMATOCRIT 42.3 % (32.4-45.2); HEMOGLOBIN 14.2 GM/dL (10.7-15.3); LYMPH % 29.5 % (8-40); MCH 31.3 pg (25.7-33.7); MCHC 33.4 g/dl (32.0-36.0); MEAN CELL VOLUME 93.7 fl (80-96); MEAN PLT VOLUME 7.6 fl (7.5-11.1); MONO % 4.8 % (3.8-10.2); NEUT % 64.3 % (42.8-82.8); PLATELET COUNT 197 10^3/uL (134-434); RBC 4.52 M/mm3 (3.60-5.2); WHITE BLOOD COUNT 9.1 K/mm3 (4.0-10.0)
[2023-08-09 22:43] LABS: INR 0.96 (0.83-1.09); PROTHROMBIN TIME (PATIENT) 11.1 SEC (9.7-13.0)
[2023-08-09 22:45] LABS: ACTIVATED PTT 30.2 SECONDS (25.2-36.5)
[2023-08-09 22:59] LABS: POTASSIUM 3.5 mmol/L (3.5-5.1)
[2023-08-09 23:01] LABS: CALCIUM 8.9 mg/dL (8.5-10.1)
[2023-08-09 23:02] LABS: ALBUMIN 3.4 g/dl (3.4-5.0); BLOOD UREA NITROGEN 17.2 mg/dL (7-18)
[2023-08-09 23:05] LABS: CREATININE 0.6 mg/dL (0.55-1.3)
[2023-08-09 23:07] LABS: BILIRUBIN,TOTAL 0.4 mg/dL (0.2-1); TOT PROT 6.4 g/dl (6.4-8.2)
[2023-08-10] MEDS ORDERED: oxyCODONE HCL 5 MG TABLET PO PRN (00:13)
[2023-08-10] MEDS ORDERED: CYCLOBENZAPRINE HCL 5 MG TABLET PO PRN (07:49)
[2023-08-10] MEDS ORDERED: DOCUSATE SODIUM 100 MG CAPSULE (FP) PO PRN (08:18)
[2023-08-10] MEDS: LIDOCAINE PATCH REMOVAL MC SCH (11:17)
[2023-08-10] MEDS: GABAPENTIN 300 MG CAPSULE PO SCH (15:26)
[2023-08-10] MEDS: POLYETHYLENE GLYCOL (HEALTHYLAX) 3350 17 GM PACKET PO PRN (16:50)
[2023-08-10] MEDS ORDERED: POLYETHYLENE GLYCOL (HEALTHYLAX) 3350 17 GM PACKET ONE (16:50)
[2023-08-10 19:04] VITALS: RESP 18
[2023-08-10] MEDS: ACETAMINOPHEN 1000 MG/100 ML BAG IVPB PRN (21:05)
[2023-08-10] MEDS: LIDOCAINE 4% PATCH TP SCH (21:06)
[2023-08-10] MEDS ORDERED: DOCUSATE SODIUM 100 MG CAPSULE (FP) PO SCH (22:00)
[2023-08-10] MEDS: POLYETHYLENE GLYCOL (HEALTHYLAX) 3350 17 GM PACKET PO SCH (22:33)
[2023-08-11 08:33] LABS: POTASSIUM 4.1 mmol/L (3.5-5.1)
[2023-08-11 08:34] LABS: CALCIUM 8.7 mg/dL (8.5-10.1)
[2023-08-11 08:35] LABS: BLOOD UREA NITROGEN 14.7 mg/dL (7-18)
[2023-08-11 08:38] LABS: CREATININE 0.6 mg/dL (0.55-1.3)
[2023-08-11] MEDS: LIDOCAINE PATCH REMOVAL MC SCH (10:29)
[2023-08-11] MEDS: ACETAMINOPHEN 1000 MG/100 ML BAG IVPB ONE (15:25)
[2023-08-11] MEDS: MAGNESIUM CITRATE 300 ML BOTTLE PO ONE (17:15)
[2023-08-11 18:50] VITALS: BP 134/74; PULSE 65; TEMP 98.4
== END 2023-08-11 20:03 | disposition home or self-care (01) | DRG 392 ==
LOC: JER 18:47 → JERBED 23:12 → OBSVTOIN 08-10 11:40 → J5S 08-10 19:34
PROVIDERS: ADMIT Internal Medicine; ATTEND Internal Medicine
DX: R10.9 Unspecified abdominal pain (principal); M54.50 Low back pain, unspecified; E78.5 Hyperlipidemia, unspecified; I10 Essential (primary) hypertension; F45.0 Somatization disorder
CPT/HCPCS: 36415; 80048; 80053; 82962; 85025; 85610; 85730; 86850; 86900; 86901; 99285-25; G0378; J0131

== ENCOUNTER 2023-10-03 08:26 | Emergency (ER) | payer OTHER, BC ==
[2023-10-03 08:47] VITALS: TEMP 98.6; BMI 20.5
[2023-10-03 10:48] LABS: BASO % 0.5 % (0-2.0); EOS % 2.3 % (0-4.5); HEMATOCRIT 42.7 % (32.4-45.2); HEMOGLOBIN 14.6 GM/dL (10.7-15.3); MCHC 34.2 g/dl (32.0-36.0); MEAN CELL VOLUME 93.6 fl (80-96); MEAN PLT VOLUME 8.6 fl (7.5-11.1); MONO % 5.6 % (3.8-10.2); NEUT % 67.6 % (42.8-82.8); PLATELET COUNT 200 10^3/uL (134-434); RBC 4.57 M/mm3 (3.60-5.2); RDW 13.8 % (11.6-15.6)
[2023-10-03 11:07] LABS: POTASSIUM 4.1 mmol/L (3.5-5.1)
[2023-10-03 11:09] LABS: CALCIUM 9.4 mg/dL (8.5-10.1)
[2023-10-03 11:10] LABS: ALBUMIN 3.8 g/dl (3.4-5.0); BLOOD UREA NITROGEN 18.1 mg/dL (7-18); MAGNESIUM 2.4 mg/dL (1.8-2.4)
[2023-10-03 11:13] LABS: CREATININE 0.8 mg/dL (0.55-1.3)
[2023-10-03 11:15] LABS: BILIRUBIN,TOTAL 0.8 mg/dL (0.2-1)
[2023-10-03 12:18] LABS: EPI CELLS 3 /uL (0-25.1); HYALINE CASTS 0 /uL (0-3.1); PH,URINE 6.5 (5.0-8.0); URINE APPEARANCE CLEAR; URINE BACTERIA 22 /uL (0-1359); URINE BILIRUBIN NEGATIVE (NEGATIVE); URINE COLOR YELLOW; URINE GLUCOSE (UA) NEGATIVE (NEGATIVE); URINE KETONE NEGATIVE (NEGATIVE); URINE LEUK ESTERASE TRACE (NEGATIVE); URINE NITRITE NEGATIVE (NEGATIVE); URINE PROTEIN NEGATIVE (NEGATIVE); URINE RBC 59 /uL (0-23.9); URINE UROBILINOGEN 0.2 mg/dL (0.2-1.0); URINE WBC 13 /uL (0-25.8)
[2023-10-03 15:01] VITALS: BP 129/72; PULSE 57; RESP 19
== END 2023-10-03 14:40 | disposition home or self-care (01) ==
LOC: JER 08:26
DX: R00.2 Palpitations (principal); I10 Essential (primary) hypertension; Z87.891 Personal history of nicotine dependence
CPT/HCPCS: 36415; 71045-TC-FY; 80053; 81003; 83735; 84443; 84484; 85025; 93005; 93010; 99285-25

== ENCOUNTER 2023-12-05 08:21 | Emergency (ER) | payer OTHER, BC ==
[2023-12-05 08:38] VITALS: BP 145/73; PULSE 65; RESP 16; TEMP 98; BMI 21.4
[2023-12-05] MEDS ORDERED: DEXAMETHASONE 4 MG TABLET (FP) ONE ×2 (09:32→09:34)
[2023-12-05] MEDS: DEXAMETHASONE 4 MG TABLET (FP) PO ONE (09:36)
== END 2023-12-05 10:25 | disposition home or self-care (01) ==
LOC: JER 08:21
DX: R21 Rash and other nonspecific skin eruption (principal); T49.5X5A Adverse effect of ophthalmological drugs and preparations, initial encounter
CPT/HCPCS: 99283-25

== ENCOUNTER 2024-01-15 10:29 | Emergency (ER) | payer OTHER, BC ==
[2024-01-15 10:40] VITALS: BP 131/75; PULSE 68; RESP 18; TEMP 97.6; BMI 20.7
[2024-01-15] MEDS ORDERED: ACETAMINOPHEN 500 MG TABLET (FP) ONE (11:36)
[2024-01-15] MEDS: ACETAMINOPHEN 500 MG TABLET (FP) PO ONE (11:37)
[2024-01-15 14:27] LABS: HIV INTERPRETATION NEGATIVE (NEGATIVE)
== END 2024-01-15 12:15 | disposition home or self-care (01) ==
LOC: JERFT 10:29
DX: R51.9 Headache, unspecified (principal); M79.10 Myalgia, unspecified site; R68.83 Chills (without fever); B34.9 Viral infection, unspecified; Z20.822 Contact with and (suspected) exposure to COVID-19
CPT/HCPCS: 0241U-QW; 36415; 86803; 87389; 99283-25